=== PATIENT | female | born 1995 | race Caucasian/White ===

== ENCOUNTER → 2019-06-23 16:42 | Outpatient (CLI) | payer OTHER, SELFPAY ==
[2019-06-23 09:19] VITALS: BMI 26.2
[2019-06-27 12:03] LABS: HPV Reflexed? NOT INDICATED
== END ==
PROVIDERS: PCP Family Medicine; Referring Provider Nurse Practitioner Women's Health; Visit Provider Nurse Practitioner Women's Health
DX: Z12.4 Encounter for screening for malignant neoplasm of cervix (principal)
CPT/HCPCS: 88175; G0145

== ENCOUNTER → 2021-03-14 13:53 | Outpatient (CLI) | payer OTHER, SELFPAY ==
[2021-03-14 16:55] LABS: Amphetamine Urine VISTA NEGATIVE (<1000 ng/mL); Barbiturate Urine VISTA NEGATIVE (< 200 ng/mL); Benzodiazepine Urine VISTA NEGATIVE (< 200 ng/mL); Cocaine Urine VISTA NEGATIVE (< 300 ng/mL); Ecstacy Urine VISTA NEGATIVE (< 500 ng/mL); Methadone Urine VISTA NEGATIVE (< 300 ng/mL); PCP Urine VISTA NEGATIVE (< 25 ng/mL); THC Urine VISTA NEGATIVE (< 50 ng/mL); Vista UDS pH Range 5
[2021-03-17 00:07] LABS: Chlamydia By Nucleic Acid AMP Negative (Negative)
[2021-03-17 17:01] LABS: Gonococcus By Nucleic Acid AMP Negative (Negative)
== END ==
PROVIDERS: PCP Family Medicine; Visit Provider Obstetrics & Gynecology
DX: Z34.90 Encounter for supervision of normal pregnancy, unspecified, unspecified trimester (principal)
CPT/HCPCS: 80307; 87086; 87491; 87591

== ENCOUNTER → 2021-04-08 16:15 | Outpatient (CLI) | payer OTHER, SELFPAY ==
[2021-04-08 17:21] LABS: Absolute Lymphocyte Count 2.32 X10^3/uL (0.83-4.51); Absolute Neutrophil Count 7.9 X10^3/uL (2.0-7.7); Basophil# 0.04 X10^3/uL; Basophil% 0.4 % (0-1); Eosinophil# 0.13 X10^3/uL; Eosinophils% 1.2 % (0-5); Hematocrit 37.3 % (37-47); Hemoglobin 12.5 g/dL (12.0-15.0); Lymphocyte # 2.32 X10^3/ul (0.83-4.51); Lymphocyte % 20.7 % (19-41); Mean Corp Hgb Conc 33.5 g/dL (32-36); Mean Corpuscular Hgb 29.6 pg (27.0-32.0); Mean Corpuscular Volume 88.4 fL (81-99); Mean Platelet Vol. 10.2 fl (6.2-12.0); Monocyte# 0.68 X10^3/uL; Monocyte% 6.1 % (0-10); NRBC Flagged by Analyzer 0 % (0-5); Neutrophil % 70.4 % (47-70); Platelet Count 373 K/mm3 (150-450); RBC Distribution Width CV 12.5 % (11.6-14.6); RBC Distribution Width SD 40.2 fl (35.1-43.9); Red Blood Count 4.22 M/mm3 (4.2-5.4); White Blood Count 11.2 K/mm3 (4.4-11.0)
[2021-04-11 12:11] LABS: HIV - WCH Non-Reactive (Nonreactive); Hepatitis B Surface Antigen Non-Reactive (Nonreactive); Hepatitis C Antibody Non-Reactive (Nonreactive); Rubella IgG Reactive (Nonreactive); Syphilis Antibodies Non-reactive
== END ==
PROVIDERS: Referring Provider Obstetrics & Gynecology; Visit Provider Obstetrics & Gynecology
DX: Z34.90 Encounter for supervision of normal pregnancy, unspecified, unspecified trimester (principal)
CPT/HCPCS: 36415; 85025; 86703; 86762; 86780; 86803; 86850; 86900; 86901; 87340

== ENCOUNTER → 2021-06-30 15:26 | Outpatient (CLI) | payer OTHER, SELFPAY ==
[2021-07-02 09:49] LABS: Toxoplasma Gondii IgM < 3.0 AU/mL (0.0-7.9)
[2021-07-07 19:09] LABS: CMV Acute Antibody IgM < 30.0 AU/mL (0.0-29.9); CMV Antibody IgG < 0.60 U/mL (0.00-0.59); CMV by PCR Negative (Negative); PARVOVIRUS B19 IGG 0.2 index (0.0-0.8); Toxoplasma Gondii IgG < 3.0 IU/mL (0.0-7.1)
== END ==
DX: O30.032 Twin pregnancy, monochorionic/diamniotic, second trimester (principal); O28.3 Abnormal ultrasonic finding on antenatal screening of mother; Z3A.00 Weeks of gestation of pregnancy not specified
CPT/HCPCS: 36415; 86644; 86645; 86747; 86777; 86778; 87496

== ENCOUNTER 2021-07-15 15:17 | Outpatient (CLI) | payer OTHER, SELFPAY ==
[2021-07-15 15:49] LABS: Absolute Lymphocyte Count 2.08 X10^3/uL (0.83-4.51); Basophil# 0.06 X10^3/uL; Basophil% 0.5 % (0-1); Eosinophils% 0.9 % (0-5); Hematocrit 33.3 % (37-47); Hemoglobin 11.1 g/dL (12.0-15.0); Lymphocyte # 2.08 X10^3/ul (0.83-4.51); Lymphocyte % 18.2 % (19-41); Mean Corp Hgb Conc 33.3 g/dL (32-36); Mean Platelet Vol. 9.9 fl (6.2-12.0); Monocyte# 0.69 X10^3/uL; NRBC Flagged by Analyzer 0 % (0-5); Neutrophil # 8.04 X10^3/uL (2.7-7.7); Neutrophil % 70.1 % (47-70); Platelet Count 281 K/mm3 (150-450); RBC Distribution Width CV 13.1 % (11.6-14.6); RBC Distribution Width SD 42.7 fl (35.1-43.9); White Blood Count 11.5 K/mm3 (4.4-11.0)
[2021-07-15 17:03] LABS: Glucose Challenge Gest 1H 50g 131 mg/dL (70-140)
== END 2021-07-15 23:59 | disposition home or self-care (01) ==
LOC: LAB 15:19
PROVIDERS: Referring Provider Obstetrics & Gynecology; Visit Provider Obstetrics & Gynecology
DX: Z13.1 Encounter for screening for diabetes mellitus (principal)
CPT/HCPCS: 36415; 82950; 85025

== ENCOUNTER → 2021-09-01 | Outpatient (CLI) | payer OTHER, SELFPAY ==
[2021-09-01 17:08] LABS: ROM Internal Control Test YES-OK TO RESULT pt. (Internal QC); ROM Patient Test Negative (Negative)
== END | disposition home or self-care (01) ==
PROVIDERS: PCP Family Medicine; Referring Provider Obstetrics & Gynecology; Visit Provider Obstetrics & Gynecology
DX: N89.8 Other specified noninflammatory disorders of vagina (principal)
CPT/HCPCS: 84112

== ENCOUNTER 2021-09-05 13:45 | Inpatient (IN) | payer OTHER, SELFPAY ==
[2021-09-05] VITALS (98 sets, daily range): BP systolic 130–174; BP diastolic 76–111; PULSE 70–100; RESP 16–18; TEMP 36.2–37.3; O2SAT 87–100; BMI 36.6
[2021-09-05 14:11] LABS: Hematocrit 36.6 % (37-47); Hemoglobin 12.6 g/dL (12.0-15.0); Mean Corp Hgb Conc 34.4 g/dL (32-36); Mean Corpuscular Hgb 30.3 pg (27.0-32.0); Mean Platelet Vol. 12.2 fl (6.2-12.0); Platelet Count 178 K/mm3 (150-450); RBC Distribution Width CV 13.2 % (11.6-14.6); RBC Distribution Width SD 42.2 fl (35.1-43.9); Red Blood Count 4.16 M/mm3 (4.2-5.4); White Blood Count 15.4 K/mm3 (4.4-11.0)
[2021-09-05] MEDS: Betamethasone/Betamethasone 30 MG/5 ML Vial 12 MG IM (14:11)
[2021-09-05 14:24] LABS: AST(SGOT) 40 U/L (15-37); Alanine Aminotransfer ALT/SGPT 22 U/L (13-56); Creatinine, Serum 1.06 mg/dL (0.55-1.02); EST Glomerular Filtration Rate 66 mL/min (>60); Est Glom Filt Rate - Afr Amer 80 mL/min (>60); Estimated Creatinine Clearance 74.63 ml/min; Uric Acid 9.2 mg/dL (2.6-6.0)
[2021-09-05 14:27] LABS: Protein:Creat Ratio 6630 mg/g CRE (0-200)
[2021-09-05] MEDS: Labetalol (Prefilled) 20 MG/4 ML IV (14:33)
[2021-09-05] MEDS: Lactated Ringers 1,000 ML 20 ML IV (14:53)
[2021-09-05] MEDS: Magnesium Sulfate 4gm/100mL 4 GM/100 ML IV.SOLN. IV (14:53)
[2021-09-05] MEDS: Magnesium Sulfate 4gm/100mL 2 GM/50 ML IV.SOLN. IV (15:15)
[2021-09-05] MEDS: Magnesium Sulfate 20 GM/500 ML BAG IV (15:28)
[2021-09-05] MEDS: Labetalol 100 MG Tablet PO (15:55)
[2021-09-05] MEDS: Oxytocin 30 units/NS 500 ml 30 UNITS/500 ML IV.SOLN IV (16:33)
[2021-09-05 18:26] LABS: Group B Strep DNA By PCR Negative (Negative); Internal Control PASS; Probe Check PASS; Specimen Processing Control PASS
[2021-09-05] MEDS: Penicillin G 3,000,000 Units 50 ML 100 UNITS IV (20:33)
[2021-09-05 20:55] LABS: Absolute Lymphocyte Count 1.18 X10^3/uL (0.83-4.51); Absolute Neutrophil Count 15.2 X10^3/uL (2.0-7.7); Basophil# 0.07 X10^3/uL; Basophil% 0.4 % (0-1); Hematocrit 37.8 % (37-47); Hemoglobin 12.8 g/dL (12.0-15.0); Lymphocyte # 1.18 X10^3/ul (0.83-4.51); Lymphocyte % 6.8 % (19-41); Mean Corp Hgb Conc 33.9 g/dL (32-36); Mean Corpuscular Hgb 30.3 pg (27.0-32.0); Mean Corpuscular Volume 89.6 fL (81-99); Mean Platelet Vol. 12.3 fl (6.2-12.0); Monocyte# 0.23 X10^3/uL; Monocyte% 1.3 % (0-10); NRBC Flagged by Analyzer 0.5 % (0-5); Neutrophil # 15.21 X10^3/uL (2.7-7.7); Neutrophil % 88.3 % (47-70); Platelet Count 181 K/mm3 (150-450); RBC Distribution Width CV 13.3 % (11.6-14.6); RBC Distribution Width SD 43.5 fl (35.1-43.9); Red Blood Count 4.22 M/mm3 (4.2-5.4); White Blood Count 17.3 K/mm3 (4.4-11.0)
[2021-09-05 21:12] LABS: ALB/GLOB Ratio 0.6 RATIO (0.9-2.4); AST(SGOT) 35 U/L (15-37); Alanine Aminotransfer ALT/SGPT 23 U/L (13-56); Albumin, Serum 2.1 g/dL (3.2-5.0); Alkaline Phosphatase 112 U/L (45-117); Anion Gap 9 (5-15); BUN 15 mg/dL (7-18); BUN/Creat Ratio 12.4 RATIO (10-20); Calcium,Total 8.8 mg/dL (8.5-10.1); Chloride 106 mmol/L (98-107); Creatinine, Serum 1.21 mg/dL (0.55-1.02); EST Glomerular Filtration Rate 57 mL/min (>60); Est Glom Filt Rate - Afr Amer 69 mL/min (>60); Estimated Creatinine Clearance 65.38 ml/min; Globulin 3.8 g/dL (2.2-4.2); Glucose 114 mg/dL (74-106); Potassium 4.5 mmol/L (3.5-5.1); Protein, Total 5.9 g/dL (6.4-8.2); Sodium Level 137 mmol/L (136-145)
[2021-09-05] MEDS: Lactated Ringers 500 ML 999 ML IV (21:34)
[2021-09-05] MEDS: fentaNYL-bupivacaine (epidural) 100 ML BAG EPIDURAL (22:50)
[2021-09-05] MEDS: 0.9% Saline Lock 10 ML Syringe IV (23:06)
[2021-09-06] VITALS (94 sets, daily range): BP systolic 85–144; BP diastolic 42–98; PULSE 63–110; RESP 16–20; TEMP 35.8–36.8; O2SAT 88–100
[2021-09-06] MEDS: Penicillin G 3,000,000 Units 50 ML 100 UNITS IV (00:24)
[2021-09-06] MEDS: Magnesium Sulfate 20 GM/500 ML BAG IV ×3 (01:25→20:47)
--- NOTE | 2021-09-06 01:25 | NURSING ---
difficult to assess patellar reflexes d/t epidural being in place.
[2021-09-06] MEDS: fentaNYL-bupivacaine (epidural) 100 ML BAG EPIDURAL (02:57)
--- NOTE | 2021-09-06 03:24 | HP.PCM.OB_ITS ---
HPI - General General Date of Admission: 09/05/21 HPI Narrative KISHOR GAGNON, is a 26 F who presents with severe preeclampsia elevated bps in 160s over 90s, urine protein over 5000 and Cr of 1. she denies any BAXTER no BV, presented with small spotting, irregular ctx good fm. Maternal Data Information RENAE Calculator Estimated Delivery Date Method Current WG Current Estimate 10/17/21 LMP (Certain) 34w 1d Other Estimates 10/16/21 Ultrasound #1 34w 2d # 2 PFSH PFSH Home Medications multivitamin no.47-iron fum 27 mg-folate no.1 1 mg-dha 300 mg capsule 1 cap PO DAILY 03/10/21 [History Last Taken Unknown] breast pump #1 ea 06/03/21 [Rx Last Taken Unknown] Allergy/AdvReac Type Severity Reaction Status Date / Time No Known Allergies Allergy Verified 08/24/21 16:06 Family History Mother Melanoma Carcinoma Surgical History H/O hand surgery Social History Smoking Status: Never smoker alcohol intake: current details: social substance use type: does not use caffeine: Yes what type of physical activity do you participate in: walking seatbelt use: always do you feel safe at home: Yes 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 History 1 Elective abortions Hx Para 0 Spontaneous abortions Hx # Term Pregnancies Ectopic pregnancies Hx # Pregnancies Multiple births # of living children Visit Details Expected Delivery Route/Plan if vtx vtx Labor Preferences- CB/BF classes: yes labor support person: debra labor intervention preferences: [] pain management options preferred: epidural cut cord/dad catch: [] : [] PP control planned: [] discussed possible routes of delivery and associated risks: [] special requests: [] Plans Covid status: non immune, counseled regarding risk of covid in vs vaccination and declined vaccination Flu vaccine: declined Tdap vaccine: [] Rhogam: [] LARC form signed: [] Problem list reviewed and updated with the most current plan of care details and appropriate orders placed. Relevant counseling for the gestational age provided. Continue routine care and follow up unless otherwise noted in visit notes/problem list details OB Flowsheet Initial Weight: Not Recorded Date -?-?-?-?-?-?-?-?-?-?-?-?- EGA Weight BP Urine Prot -?-?-?-?-?-?-?-?-?-?-?-?- Glucose FHR FuHt Pres Dilation -?-?-?-?-?-?-?-?-?-?-?-?- Effaced St Visit Note 03/14/21 -?-?-?-?-?-?-?-?-?-?-?-?- 9w 0d 100/72 -?-?-?-?-?-?-?-?-?-?-?-?- A 168 -?-?-?-?-?-?-?-?-?-?-?-?- B 184 A -?-?-?-?-?-?-?-?-?-?-?-?- B -?-?-?-?-?-?-?-?-?-?-?-?- A -?-?-?-?-?-?-?-?-?-?-?-?- B A SM- Frontier/Di twin s seen poles measuring cons with LMP A- B- SM- Frontier/Di twins seen poles measuring cons with LMP A- 2.1cm B- 2.26cm -?-?-?-?-?-?-?-?-?-?-?-?- B 04/08/21 -?-?-?-?-?-?-?-?-?-?--?-?- 12w 4d 175 lb 8 oz 106/62 Nega tive -?-?-?-?-?-?-?-?-?-?-?-?- Negative A 170 -?-?-?-?-?-?-?-?-?-?-?-?- B 170 A -?-?-?-?-?-?-?-?-?-?-?-?- B -?-?-?-?-?-?-?-?-?-?-?-?- A -?-?-?-?-?-?-?-?-?-?-?-?- B A Sm- no vb lof cr maping -?-?-?-?-?-?-?-?-?-?-?-?- B 05/05/21 -?--?-?-?-?-?-?-?-?-?-?-?- 16w 3d 177 lb 4 oz 136/78 Nega tive -?-?-?-?-?-?-?-?-?-?-?-?- Negative A 145 -?-?-?-?-?-?-?-?-?-?-?-?- B 140 A -?-?-?-?-?-?--?-?-?-?-?-?- B -?-?-?-?-?-?-?-?-?-?-?-?- A -?-?-?-?-?-?-?-?-?-?-?-?- B A SM- no vb lof cr amping [facility] consult ordered -?-?-?-?-?-?-?-?-?-?-?-?- B 06/03/21 -?-?-?-?-?-?-?-?-?-?-?-?- 20w 4d 185 lb 6 oz 120/80 Nega tive -?-?-?-?-?-?-?-?-?-?-?-?- Negative A 150 -?-?-?-?-?-?-?-?-?-?-?-?- B 139 A Cephalic -?-?-?-?-?-?-?-?-?-?-?-?- B Breech -?-?-?-?-?-?-?-?-?-?-?-?- A -?-?-?-?-?-?-?-?-?-?-?-?- B A JV- no lof, vagi nal bleeding, or cramping. wants breast pump -?-?-?-?-?-?-?-?-?-?-?-?- B 06/13/21 -?-?-?-?-?-?-?-?-?-?-?-?- 22w 0d 191 lb 102/64 Negative -?-?-?-?-?-?-?-?-?-?-?-?- Negative A 147 -?-?-?-?-?-?-?-?-?-?-?-?- B 136 A -?-?-?-?-?-?-?-?-?-?-?-?- B -?-?-?-?-?-?-?-?-?-?-?-?- A -?-?-?-?-?-?-?-?-?-?-?-?- B A -Work in. Slip ped on ice 3 days ago, fell on left hip. Denies VB, LOF. No CTX. Good Fm. US confirms active IUP, FHT. Reassured. -?-?-?-?-?-?-?-?-?-?-?-?- B 06/30/21 -?-?-?-?-?-?-?-?-?-?-?-?- 24w 3d 191 lb 110/70 -?-?-?-?-?-?-?-?-?-?-?-?- A 145 -?-?-?-?-?-?-?-?-?-?-?-?- B 150 A -?-?-?-?-?-?-?-?-?-?-?-?- B -?-?-?-?-?-?-?-?-?-?-?-?- A -?-?-?-?-?-?-?-?-?-?-?-?- B A Sm- no vb lof go od fm no regualr ctx -?-?-?-?-?-?-?-?-?-?-?-?- B 07/15/21 -?-?-?-?-?-?-?-?-?-?-?-?- 26w 4d 196 lb 110/82 Negative -?-?-?-?-?-?-?-?-?-?-?-?- Negative A 135 -?-?-?-?-?-?-?-?-?-?-?-?- B 145 A -?-?-?-?-?-?--?-?-?-?-?-?- B -?-?-?-?-?-?-?-?-?-?-?-?- A -?-?-?-?-?-?-?-?-?-?-?-?- B A SM- no vb lof go od fm no regular ctx -?-?-?-?-?-?-?-?-?-?-?-?- B 07/26/21 -?-?-?-?-?-?-?-?-?-?-?-?- 28w 1d 198 lb 122/86 Negative -?-?-?-?-?-?-?-?-?-?-?-?- Negative A 150 -?-?-?-?-?-?-?-?-?-?-?-?- B 145 A Cephalic -?-?-?-?-?-?-?-?-?-?-?-?- B Transverse -?-?-?-?-?-?-?-?-?-?-?-?- A -?-?-?-?-?-?-?-?-?-?-?-?- B A SM- no vb lof go od fm no reuglar ctx reviewed labs -?-?-?-?-?-?-?-?-?-?-?-?- B 08/11/21 -?-?-?-?-?-?-?-?-?-?-?-?- 30w 3d 206 lb -?-?-?-?-?-?-?-?-?-?-?-?- A 145 -?-?-?-?-?-?-?-?-?-?-?-?- B 150 A Cephalic -?-?-?-?-?-?-?-?-?-?-?-?- B Cephalic -?-?-?-?-?-?-?-?-?-?-?-?- A -?-?-?-?-?-?-?-?-?-?-?-?- B A SM- no vb lof go od fm no regular ctx -?-?-?-?-?-?-?-?-?-?-?-?- B 08/17/21 -?-?-?-?-?-?-?-?-?-?-?-?- 31w 2d 206 lb 6 oz 120/80 -?-?-?-?-?-?-?-?-?-?-?-?- A 130 -?-?-?-?-?-?-?-?-?-?-?-?- B 50 A Transverse -?-?-?-?-?-?-?-?-?-?-?-?- B Transverse -?-?-?-?-?-?-?-?-?-?-?-?- A -?-?-?-?-?-?-?-?-?-?-?-?- B A JV- no complaint s today. plans to see MFM weekly and us weekly. She will have DANDRE checks with them and [facility]CV dopplers. if no signs of ttts plan is to deliver at 37 weeks. -?-?-?-?-?-?-?-?-?-?--?-?- B 08/24/21 -?-?-?-?-?-?-?-?-?-?-?-?- 32w 2d 210 lb 6 oz 130/80 Nega tive -?-?-?-?-?-?-?-?-?-?-?-?- Negative A -?-?-?-?-?-?-?-?-?-?-?-?- B A Cephalic -?-?-?-?-?-?-?-?-?-?-?-?- B Transverse -?-?-?-?-?-?-?-?-?-?-?-?- A -?-?-?-?-?-?-?-?-?-?-?-?- B A JV- no lof, vagi nal bleeding or dec fm. plan to ask mfm tomorrow about potential for NSTs and when. -?-?-?-?-?-?-?-?-?-?-?-?- B 09/01/21 -?-?-?-?-?-?-?-?-?-?-?-?- 33w 3d -?-?--?-?-?-?-?-?-?-?-?-?- A 155 -?-?-?-?-?-?-?-?-?-?-?-?- B 145 A Cephalic -?-?-?-?-?-?-?-?-?-?-?-?- B Cephalic -?-?-?-?-?-?-?-?-?-?-?-?- A -?-?-?-?-?-?-?-?-?-?-?-?- B A SM- no vb lof go od fm no regular ctx -?-?-?-?-?-?-?-?-?-?-?-?- B 09/05/21 -?-?-?-?-?-?-?-?-?-?-?-?- 34w 0d 227 lb 6 oz 158/102 153/100 169/108 160/100 154/92 150/98 168/92 166/87 156/100 146/98 146/98 141/94 141/94 157/108 174/101 157/108 148/94 155/109 155/109 162/92 157/92 146/82 146/82 146/82 147/90 147/90 147/90 148/89 148/89 148/89 143/93 143/93 144/93 144/93 166/100 166/100 166/97 174/111 167/104 168/101 159/95 158/97 145/86 140/87 143/87 143/93 141/84 130/80 130/80 134/85 132/77 138/76 133/83 133/83 131/83 122/74 122/74 125/75 125/75 119/74 119/74 133/84 133/84 -?-?-?-?-?-?-?-?-?-?-?-?- A -?-?-?-?-?-?-?-?-?-?-?-?- B A -?-?-?-?-?-?-?-?-?-?-?-?- B -?-?-?-?-?-?-?-?-?-?-?-?- A -?-?-?-?-?-?-?-?-?-?-?-?- B A -?-?-?-?-?-?-?-?-?-?-?-?- B NST FHR Rate Baby A Baseline: 140 Variability:: Moderate Accelerations:: 15 x 15 Decelerations:: None NST Reactive:: Yes FHR Category:: Category I Uterine Activity:: q3-5 FHR Rate Baby B Baseline: 140 Variability:: Moderate Accelerations:: 15 x 15 Decelerations:: None NST Reactive:: Yes FHR Category:: Category I ROS Constitutional Constitutional: Reports systems reviewed and no addt'l complaints, except as documented ENT HEENT: Reports systems reviewed and no addt'l complaints, except as documented Cardiovascular Cardiovascular: Reports systems reviewed and no addt'l complaints, except as documented Respiratory/Chest Respiratory/Chest: Reports systems reviewed and no addt'l complaints, except as documented Gastrointestinal Gastrointestinal: Reports systems reviewed and no addt'l complaints, except as documented and nausea; Denies abdominal pain Genitourinary Genitourinary: Reports systems reviewed and no addt'l complaints, except as documented, contractions Details: present and frequency (regular ) and movement Details: present Musculoskeletal Musculoskeletal: Reports systems reviewed and no addt'l complaints, except as documented Integumentary Integumentary: Reports as per HPI Neurologic Neurologic: Reports systems reviewed and no addt'l complaints, except as documented Endocrine Endocrinology: Reports systems reviewed and no addt'l complaints, except as documented Vital Signs Vital Signs Vital Signs: 09/05/21 13:26 09/05/21 13:27 09/05/21 13:28 Temperature 99.1 F Temperature Source Temporal Pulse Rate 89 93 94 Respiratory Rate Respiratory Effort Respiratory Depth Respiratory Pattern Blood Pressure 158/102 H 153/100 H Blood Pressure Mean BP Systolic 158 153 BP Diastolic 102 100 Blood Pressure Source Blood Pressure Position Blood Pressure Location Pulse Ox 96 96 Oxygen Delivery Method 09/05/21 13:40 09/05/21 13:51 09/05/21 14:00 Temperature Temperature Source Pulse Rate 100 90 88 Respiratory Rate Respiratory Effort Respiratory Depth Respiratory Pattern Blood Pressure 169/108 H 160/100 H 154/92 H Blood Pressure Mean BP Systolic 169 160 154 BP Diastolic 108 100 92 Blood Pressure Source Blood Pressure Position Blood Pressure Location Pulse Ox Oxygen Delivery Method 09/05/21 14:09 09/05/21 14:20 09/05/21 14:29 Temperature Temperature Source Pulse Rate 95 90 96 Respiratory Rate Respiratory Effort Respiratory Depth Respiratory Pattern Blood Pressure 150/98 H 168/92 H 166/87 H Blood Pressure Mean BP Systolic 150 168 166 BP Diastolic 98 92 87 Blood Pressure Source Blood Pressure Position Blood Pressure Location Pulse Ox Oxygen Delivery Method 09/05/21 14:46 09/05/21 14:48 09/05/21 14:49 Temperature Temperature Source Pulse Rate 91 84 90 Respiratory Rate Respiratory Effort Respiratory Depth Respiratory Pattern Blood Pressure 156/100 H Blood Pressure Mean BP Systolic 156 BP Diastolic 100 Blood Pressure Source Blood Pressure Position Blood Pressure Location Pulse Ox 96 94 Oxygen Delivery Method 09/05/21 14:51 09/05/21 14:53 09/05/21 14:56 Temperature Temperature Source Pulse Rate 98 94 93 Respiratory Rate 16 Respiratory Effort Normal Respiratory Depth Normal Respiratory Pattern Normal Blood Pressure 146/98 H Blood Pressure Mean 114 BP Systolic 146 BP Diastolic 98 Blood Pressure Source Monitor Blood Pressure Position Semi-Fowlers Blood Pressure Location Left Arm Pulse Ox 96 95 95 Oxygen Delivery Method Room Air 09/05/21 14:59 09/05/21 15:01 09/05/21 15:06 Temperature Temperature Source Pulse Rate 89 88 Respiratory Rate Respiratory Effort Respiratory Depth Respiratory Pattern Blood Pressure Blood Pressure Mean BP Systolic BP Diastolic Blood Pressure Source Blood Pressure Position Blood Pressure Location Pulse Ox 94 94 90 Oxygen Delivery Method 09/05/21 15:07 09/05/21 15:11 09/05/21 15:15 Temperature 98.5 F Temperature Source Temporal Pulse Rate 88 94 91 Respiratory Rate 16 Respiratory Effort Normal Respiratory Depth Normal Respiratory Pattern Normal Blood Pressure 141/94 H 141/94 H Blood Pressure Mean 109 BP Systolic 141 BP Diastolic 94 Blood Pressure Source Monitor Blood Pressure Position Semi-Fowlers Blood Pressure Location Left Arm Pulse Ox 94 95 Oxygen Delivery Method Room Air 09/05/21 15:16 09/05/21 15:21 09/05/21 15:26 Temperature Temperature Source Pulse Rate 97 89 92 Respiratory Rate Respiratory Effort Respiratory Depth Respiratory Pattern Blood Pressure Blood Pressure Mean BP Systolic BP Diastolic Blood Pressure Source Blood Pressure Position Blood Pressure Location Pulse Ox 95 92 94 Oxygen Delivery Method 09/05/21 15:27 09/05/21 15:31 09/05/21 15:34 Temperature Temperature Source Pulse Rate 91 92 88 Respiratory Rate 16 Respiratory Effort Normal Respiratory Depth Normal Respiratory Pattern Normal Blood Pressure 157/108 H 174/101 H Blood Pressure Mean 124 BP Systolic 174 BP Diastolic 101 Blood Pressure Source Monitor Blood Pressure Position Semi-Fowlers Blood Pressure Location Left Arm Pulse Ox 94 94 90 Oxygen Delivery Method Room Air 09/05/21 15:35 09/05/21 15:36 09/05/21 15:37 Temperature Temperature Source Pulse Rate 91 79 Respiratory Rate Respiratory Effort Respiratory Depth Respiratory Pattern Blood Pressure 157/108 H 148/94 H Blood Pressure Mean BP Systolic 157 148 BP Diastolic 108 94 Blood Pressure Source Blood Pressure Position Blood Pressure Location Pulse Ox 89 Oxygen Delivery Method 09/05/21 15:41 09/05/21 15:46 09/05/21 15:51 Temperature Temperature Source Pulse Rate 84 87 Respiratory Rate Respiratory Effort Respiratory Depth Respiratory Pattern Blood Pressure Blood Pressure Mean BP Systolic BP Diastolic Blood Pressure Source Blood Pressure Position Blood Pressure Location Pulse Ox 95 96 95 Oxygen Delivery Method 09/05/21 15:52 09/05/21 15:56 09/05/21 16:01 Temperature Temperature Source Pulse Rate 96 96 90 Respiratory Rate 18 Respiratory Effort Normal Respiratory Depth Normal Respiratory Pattern Normal Blood Pressure 155/109 H 155/109 H Blood Pressure Mean 124 BP Systolic 155 BP Diastolic 109 Blood Pressure Source Monitor Blood Pressure Position Semi-Fowlers Blood Pressure Location Left Arm Pulse Ox 96 96 Oxygen Delivery Method Room Air 09/05/21 16:06 09/05/21 16:07 09/05/21 16:11 Temperature Temperature Source Pulse Rate 94 93 Respiratory Rate Respiratory Effort Respiratory Depth Respiratory Pattern Blood Pressure 162/92 H Blood Pressure Mean BP Systolic 162 BP Diastolic 92 Blood Pressure Source Blood Pressure Position Blood Pressure Location Pulse Ox 96 95 Oxygen Delivery Method 09/05/21 16:16 09/05/21 16:21 09/05/21 16:22 Temperature Temperature Source Pulse Rate 86 89 86 Respiratory Rate Respiratory Effort Respiratory Depth Respiratory Pattern Blood Pressure 157/92 H Blood Pressure Mean BP Systolic 157 BP Diastolic 92 Blood Pressure Source Blood Pressure Position Blood Pressure Location Pulse Ox 96 95 Oxygen Delivery Method 09/05/21 16:26 09/05/21 16:31 09/05/21 16:36 Temperature Temperature Source Pulse Rate 92 87 91 Respiratory Rate Respiratory Effort Respiratory Depth Respiratory Pattern Blood Pressure Blood Pressure Mean BP Systolic BP Diastolic Blood Pressure Source Blood Pressure Position Blood Pressure Location Pulse Ox 95 96 96 Oxygen Delivery Method 09/05/21 16:37 09/05/21 16:38 09/05/21 16:41 Temperature 97.8 F Temperature Source Temporal Pulse Rate 88 87 Respiratory Rate 18 Respiratory Effort Normal Respiratory Depth Normal Respiratory Pattern Normal Blood Pressure 146/82 H 146/82 H Blood Pressure Mean 103 BP Systolic 146 146 BP Diastolic 82 82 Blood Pressure Source Monitor Blood Pressure Position Semi-Fowlers Blood Pressure Location Left Arm Pulse Ox 96 95 Oxygen Delivery Method Room Air 09/05/21 16:46 09/05/21 16:51 09/05/21 16:56 Temperature Temperature Source Pulse Rate 96 90 88 Respiratory Rate Respiratory Effort Respiratory Depth Respiratory Pattern Blood Pressure Blood Pressure Mean BP Systolic BP Diastolic Blood Pressure Source Blood Pressure Position Blood Pressure Location Pulse Ox 96 96 96 Oxygen Delivery Method 09/05/21 17:01 09/05/21 17:07 09/05/21 17:08 Temperature Temperature Source Pulse Rate 86 90 Respiratory Rate 16 Respiratory Effort Normal Respiratory Depth Normal Respiratory Pattern Normal Blood Pressure 147/90 H 147/90 H Blood Pressure Mean 109 BP Systolic 147 147 BP Diastolic 90 90 Blood Pressure Source Monitor Blood Pressure Position Semi-Fowlers Blood Pressure Location Left Arm Pulse Ox 96 96 Oxygen Delivery Method Room Air 09/05/21 18:00 09/05/21 18:03 09/05/21 19:27 Temperature 98.1 F 98.1 F Temperature Source Temporal Temporal Pulse Rate 93 92 Respiratory Rate Respiratory Effort Normal Respiratory Depth Normal Respiratory Pattern Normal Blood Pressure 148/89 H 148/89 H Blood Pressure Mean 108 BP Systolic 148 BP Diastolic 89 Blood Pressure Source Monitor Blood Pressure Position Semi-Fowlers Blood Pressure Location Left Arm Pulse Ox 94 92 Oxygen Delivery Method 09/05/21 19:28 09/05/21 20:29 09/05/21 21:35 Temperature 98.6 F 98.3 F Temperature Source Temporal Temporal Pulse Rate 89 86 88 Respiratory Rate 16 16 Respiratory Effort Normal Non-Labored Respiratory Depth Normal Respiratory Pattern Normal Blood Pressure 143/93 H 144/93 H Blood Pressure Mean 109 110 BP Systolic 143 144 BP Diastolic 93 93 Blood Pressure Source Monitor Monitor Blood Pressure Position Semi-Fowlers Semi-Fowlers Blood Pressure Location Left Arm Left Arm Pulse Ox 95 95 97 Oxygen Delivery Method Room Air Room Air 09/05/21 21:36 09/05/21 21:45 09/05/21 21:53 Temperature 98.3 F Temperature Source Temporal Pulse Rate 90 90 82 Respiratory Rate 18 Respiratory Effort Normal Non-Labored Respiratory Depth Normal Respiratory Pattern Normal Blood Pressure 166/100 H 166/100 H 166/97 H Blood Pressure Mean 122 BP Systolic 166 166 BP Diastolic 100 97 Blood Pressure Source Monitor Blood Pressure Position Semi-Fowlers Blood Pressure Location Right Arm Pulse Ox 97 Oxygen Delivery Method Room Air 09/05/21 22:04 09/05/21 22:10 09/05/21 22:14 Temperature Temperature Source Pulse Rate 92 96 88 Respiratory Rate Respiratory Effort Respiratory Depth Respiratory Pattern Blood Pressure 174/111 H 167/104 H Blood Pressure Mean BP Systolic 174 167 BP Diastolic 111 104 Blood Pressure Source Blood Pressure Position Blood Pressure Location Pulse Ox 96 97 Oxygen Delivery Method 09/05/21 22:15 09/05/21 22:16 09/05/21 22:19 Temperature Temperature Source Pulse Rate 88 90 85 Respiratory Rate Respiratory Effort Respiratory Depth Respiratory Pattern Blood Pressure 168/101 H 159/95 H Blood Pressure Mean BP Systolic 168 159 BP Diastolic 101 95 Blood Pressure Source Blood Pressure Position Blood Pressure Location Pulse Ox 99 Oxygen Delivery Method 09/05/21 22:20 09/05/21 22:24 09/05/21 22:25 Temperature Temperature Source Pulse Rate 88 85 86 Respiratory Rate Respiratory Effort Respiratory Depth Respiratory Pattern Blood Pressure 158/97 H Blood Pressure Mean BP Systolic 158 BP Diastolic 97 Blood Pressure Source Blood Pressure Position Blood Pressure Location Pulse Ox 99 100 Oxygen Delivery Method 09/05/21 22:29 09/05/21 22:31 09/05/21 22:36 Temperature Temperature Source Pulse Rate 81 86 85 Respiratory Rate Respiratory Effort Respiratory Depth Respiratory Pattern Blood Pressure 145/86 H Blood Pressure Mean BP Systolic 145 BP Diastolic 86 Blood Pressure Source Blood Pressure Position Blood Pressure Location Pulse Ox 98 97 Oxygen Delivery Method 09/05/21 22:39 09/05/21 22:41 09/05/21 22:46 Temperature Temperature Source Pulse Rate 87 89 78 Respiratory Rate Respiratory Effort Respiratory Depth Respiratory Pattern Blood Pressure 140/87 H Blood Pressure Mean BP Systolic 140 BP Diastolic 87 Blood Pressure Source Blood Pressure Position Blood Pressure Location Pulse Ox 98 99 Oxygen Delivery Method 09/05/21 22:49 09/05/21 22:51 09/05/21 22:55 Temperature 97.3 F L Temperature Source Temporal Pulse Rate 73 72 75 Respiratory Rate 16 Respiratory Effort Respiratory Depth Respiratory Pattern Blood Pressure 143/93 H 141/84 H Blood Pressure Mean 109 BP Systolic 143 141 BP Diastolic 87 84 Blood Pressure Source Monitor Blood Pressure Position Blood Pressure Location Right Arm Pulse Ox 97 97 Oxygen Delivery Method Room Air 09/05/21 22:56 09/05/21 23:00 09/05/21 23:01 Temperature Temperature Source Pulse Rate 72 71 73 Respiratory Rate Respiratory Effort Respiratory Depth Respiratory Pattern Blood Pressure 130/80 H Blood Pressure Mean BP Systolic 130 BP Diastolic 80 Blood Pressure Source Blood Pressure Position Blood Pressure Location Pulse Ox 96 96 Oxygen Delivery Method 09/05/21 23:04 09/05/21 23:06 09/05/21 23:10 Temperature Temperature Source Pulse Rate 76 76 73 Respiratory Rate Respiratory Effort Respiratory Depth Respiratory Pattern Blood Pressure 130/80 H 134/85 H Blood Pressure Mean BP Systolic 130 134 BP Diastolic 80 85 Blood Pressure Source Blood Pressure Position Blood Pressure Location Pulse Ox 98 Oxygen Delivery Method 09/05/21 23:11 09/05/21 23:14 09/05/21 23:16 Temperature Temperature Source Pulse Rate 71 81 70 Respiratory Rate Respiratory Effort Respiratory Depth Respiratory Pattern Blood Pressure 132/77 H Blood Pressure Mean BP Systolic 132 BP Diastolic 77 Blood Pressure Source Blood Pressure Position Blood Pressure Location Pulse Ox 95 95 Oxygen Delivery Method 09/05/21 23:21 09/05/21 23:24 09/05/21 23:26 Temperature 97.1 F L Temperature Source Temporal Pulse Rate 84 80 83 Respiratory Rate 16 Respiratory Effort Normal Non-Labored Respiratory Depth Normal Respiratory Pattern Normal Blood Pressure 138/76 H 133/83 H 131/83 H Blood Pressure Mean 99 BP Systolic 138 133 131 BP Diastolic 76 83 83 Blood Pressure Source Monitor Blood Pressure Position Semi-Fowlers Blood Pressure Location Left Arm Pulse Ox 95 96 96 Oxygen Delivery Method Room Air 09/05/21 23:31 09/05/21 23:36 09/05/21 23:41 Temperature Temperature Source Pulse Rate 88 89 90 Respiratory Rate Respiratory Effort Respiratory Depth Respiratory Pattern Blood Pressure Blood Pressure Mean BP Systolic BP Diastolic Blood Pressure Source Blood Pressure Position Blood Pressure Location Pulse Ox 96 96 95 Oxygen Delivery Method 09/05/21 23:46 09/05/21 23:51 09/06/21 00:21 Temperature 97.1 F L Temperature Source Temporal Pulse Rate 89 85 90 Respiratory Rate Respiratory Effort Respiratory Depth Respiratory Pattern Blood Pressure 122/74 H Blood Pressure Mean BP Systolic 122 BP Diastolic 74 Blood Pressure Source Blood Pressure Position Blood Pressure Location Pulse Ox 95 96 95 Oxygen Delivery Method 09/06/21 00:22 09/06/21 01:19 09/06/21 01:24 Temperature 97.1 F L 97.7 F L Temperature Source Temporal Temporal Pulse Rate 83 95 94 Respiratory Rate 16 16 Respiratory Effort Normal Non-Labored Respiratory Depth Normal Respiratory Pattern Normal Blood Pressure 122/74 H 125/75 H Blood Pressure Mean 90 91 BP Systolic 125 BP Diastolic 75 Blood Pressure Source Monitor Monitor Blood Pressure Position Semi-Fowlers Semi-Fowlers Blood Pressure Location Left Arm Right Arm Pulse Ox 95 94 95 Oxygen Delivery Method Room Air Room Air 09/06/21 01:29 09/06/21 02:19 09/06/21 03:00 Temperature 97.9 F 98.3 F Temperature Source Temporal Temporal Pulse Rate 92 87 94 Respiratory Rate 18 16 Respiratory Effort Normal Non-Labored Respiratory Depth Normal Respiratory Pattern Normal Blood Pressure 119/74 133/84 H Blood Pressure Mean 89 100 BP Systolic 119 133 BP Diastolic 74 84 Blood Pressure Source Monitor Monitor Blood Pressure Position Semi-Fowlers Semi-Fowlers Blood Pressure Location Left Arm Right Arm Pulse Ox 95 94 94 Oxygen Delivery Method Room Air Room Air 09/06/21 03:05 09/06/21 03:10 09/06/21 03:15 Temperature Temperature Source Pulse Rate 96 97 96 Respiratory Rate Respiratory Effort Respiratory Depth Respiratory Pattern Blood Pressure Blood Pressure Mean BP Systolic BP Diastolic Blood Pressure Source Blood Pressure Position Blood Pressure Location Pulse Ox 94 94 94 Oxygen Delivery Method 09/06/21 03:20 Temperature Temperature Source Pulse Rate 95 Respiratory Rate Respiratory Effort Respiratory Depth Respiratory Pattern Blood Pressure Blood Pressure Mean BP Systolic BP Diastolic Blood Pressure Source Blood Pressure Position Blood Pressure Location Pulse Ox 93 Oxygen Delivery Method Weight Weight: 227 lb 6 oz Body Mass Index (BMI) 36.6 Physical Exam Const alert, oriented x3 and healthy appearing Constitutional Narrative: uncomfortable with contractions HEENT normocephalic and moist oral mucous membranes Head and Scalp: atraumatic Neck full ROM, no lymphadenopathy, supple and thyroid normal General: trachea midline Thyroid: thyroid normal Lymph Lymphatic: no lymphadenopathy noted Chest inspection of chest normal Resp normal respiratory effort Cardio regular rate GI normal to inspection, nondistended, normoactive bowel sounds, soft to palpation and non-tender Inspection: gravid external exam normal Bimanual Exam - Vag & Uterus: uterus non-tender Manual OB Exam: estimated gestational size appropriate, presentation cephalic, dilated, effaced and station Extremity normal to inspection General Extremity: Negative for edema Skin no rashes or lesions noted Neuro deep tendon reflexes 2+ bilaterally Motor Exam: strength 5/5 throughout, clonus absent and clonus present initially by nurse, resolved for physician assessment Psych mental status grossly normal Labs Labs Labs: Blood Type O POSITIVE Antibody Screen NEGATIVE Hct 37.8 % (37-47) Hgb 12.8 g/dL (12.0-15.0) Syphilis Total Ab Non-reactive Rubella IgG Antibody Reactive (Nonreactive) Hep Bs Antigen Non-Reactive (Nonreactive) Chlamydia DNA (ANDREA) Negative (Negative) Neisseria gonorrhoeae DNA (ANDREA) Negative (Negative) HIV 1&2 Antibody Non-Reactive (Nonreactive) Glucose 1 Hr 50 gm 131 mg/dL (70-140) Group B Strep DNA Negative (Negative) Assessment & Plan (1) Preeclampsia, severe: COMMENT: plan IOL pitocin. magnesium sulfate 6 g then 2g. bloodwork repeat in 6 hours. celestone given for prematurity. pcn for gbs prophylaxis. labetalol IV x 1 and oral 100 BID started. (2) Supervision of high-risk : COMMENT: PRR RENAE: 10/17/21 girls Spouse: Debra (3) Echogenic bowel of fetus: COMMENT: echo genic stomach. torch titers ordered by [facility], fu scheduled. 06/30 titers negative, 07/27 US no change (4) Monochorionic diamniotic twin gestation: QUALIFIERS: Trimester: second trimester Qualified Code(s): O30.032 - Twin , monochorionic/diamniotic, second trimester COMMENT: seen at 9 weeks. monthly visit until 24 wks then every 2 wks until 30 then wkly until delivery, MFM visit q2 wks for TTTS, testing @32 wks 2x per wk once with MFM and once with OB. Delivery at 37 wks. TORCH titers sent on 06/30 and will see treatment center (5) : QUALIFIERS: Weeks of gestation: 33 weeks Qualified Code(s): Z3A.33 - 33 weeks gestation of COMMENT: declined genetic and carrier. Normal anatomy. (6) Encounter for induction of labor: COMMENT: iol pitocin, epidural PRN, AROM PRN. PLAN: see problem list comments
[2021-09-06] MEDS: Oxytocin 30 units/NS 500 ml 30 UNITS/500 ML IV.SOLN 334 UNITS IV (04:57)
[2021-09-06] MEDS: Carboprost Tromethamine 250 MCG/ML Ampul IM (05:03)
[2021-09-06] MEDS: miSOPROStol 200 MCG Tablet 1000 MCG RC (05:08)
[2021-09-06] MEDS: Ondansetron 4 MG/2 ML Vial IV (05:33)
--- NOTE | 2021-09-06 05:36 | EX.PCM.OBRPT ---
Assessment & Plan (1) Twin delivered vaginally: COMMENT: SM mono di girls x 2 severe preeclampsia PPH (2) atony of uterus with hemorrhage: COMMENT: hemabate, fundal massage, cytotec, TXA given. (3) Encounter for induction of labor: COMMENT: iol pitocin, epidural PRN, AROM PRN. (4) Preeclampsia, severe: COMMENT: plan magnesium sulfate x 24 hours PP. cbc cmp post delivery and at 24 hours PP (5) Supervision of high-risk : COMMENT: PRR RENAE: 10/17/21 girls Spouse: Debra (6) Echogenic bowel of fetus: COMMENT: echo genic stomach. torch titers ordered by MFM, fu scheduled. 06/30 titers negative, 07/27 US no change (7) Monochorionic diamniotic twin gestation: QUALIFIERS: Trimester: second trimester Qualified Code(s): O30.032 - Twin , monochorionic/diamniotic, second trimester COMMENT: seen at 9 weeks. monthly visit until 24 wks then every 2 wks until 30 then wkly until delivery, MFM visit q2 wks for TTTS, testing @32 wks 2x per wk once with MFM and once with OB. Delivery at 37 wks. TORCH titers sent on 06/30 and will see treatment center (8) : QUALIFIERS: Weeks of gestation: 33 weeks Qualified Code(s): Z3A.33 - 33 weeks gestation of COMMENT: declined genetic and carrier. Normal anatomy. Maternal Data Information RENAE Calculator Estimated Delivery Date Method Current WG Current Estimate 10/17/21 LMP (Certain) 34w 1d Other Estimates 10/16/21 Ultrasound #1 34w 2d # 2 Vaginal Delivery Operative Information Date of Procedure: 09/06/21 Pre-Operative Diagnosis: IOL twins mono di severe preeclampsia 34w1d Post-Operative Diagnosis: same plus hemorrhage atony Surgery / Procedure Performed: Spontaneous Vaginal Delivery (twins) and - (removal of right buttox lesion) Type of Anesthesia: Epidural Special Medications: cytotec hemabate txa Estimated Blood Loss: 1300 Fluids Replaced: crystalloid Findings Description of Procedure: Patient began pushing and delivered the head in the [EBONI] presentation. The head was delivered atraumatically . The anterior and posterior shoulders delivered without complication followed by the rest of the infant and the infant was placed on the maternal abdomen. Delayed cord clamping was employed for approximately 60 seconds. Cord was clamped and cut. After baby A was delivered to contractions later patient was complete again and clear rupture membranes resulted in patient being ready to push. Patient began pushing with the next contraction and delivered spontaneously baby B the head followed by the anterior and posterior shoulders in the JAMAAL presentation. Delayed cord clamping was employed and then the cord was clamped and cut and the passed off to marketing database coordinator. Placenta delivered immediately following was noted be intact. EBL was 1300 cc atony and hemorrhage was noted and treated with Hemabate, tranexamic acid, fundal massage, and Cytotec. The perineum and vagina were inspected and noted to have a second-degree perineal laceration that was repaired in the usual fashion. Patient had a right buttocks lesion that she requested to be removed. This area was prepped with Betadine and it was cut off at the base it was 1 cm in size and found to be a genital wart. bovey was used to obtain hemostasis. Patient and infant tolerated delivery well. Presentation: EBONI Amniotic Membrane Rupture Type: Artificial Amniotic Fluid Description: Clear Placental Delivery Description: Spontaneous Placenta Disposition: [facility] Cord Vessel Description: 3 Vessels Cord Entanglement: None Delayed Cord Clamping: Yes Post Vaginal Delivery Medications Given After Delivery: IV Pitocin, IM Hemabate and - (cytotec, TXA) Episiotomy Description: None Laceration: Perineal Extension/lac and 2nd degree Complication Complications: - (PPH ATONY) Multi Select Codes Integumentary Integumentary CPT Codes: 31738 Exc tr-ext b9+palma 0.5 cm< (1 cm) Urinary/Genital Urinary/Genital CPT Codes: 50676 Vaginal Delivery global pkg (twin vaginal delivery)
--- NOTE | 2021-09-06 06:16 | NURSING ---
mono-di twins (two amniotic sacs) -- baby A ruptured 2158 clear, scant fluid. baby B ruptured 0448 clear, small amount.
[2021-09-06 07:08] LABS: Absolute Lymphocyte Count 2.19 X10^3/uL (0.83-4.51); Basophil# 0.08 X10^3/uL; Basophil% 0.3 % (0-1); Eosinophil# 0.01 X10^3/uL; Hematocrit 30.7 % (37-47); Hemoglobin 10.1 g/dL (12.0-15.0); Lymphocyte # 2.19 X10^3/ul (0.83-4.51); Mean Corp Hgb Conc 32.9 g/dL (32-36); Mean Corpuscular Hgb 30.1 pg (27.0-32.0); Mean Corpuscular Volume 91.4 fL (81-99); Mean Platelet Vol. 12.5 fl (6.2-12.0); Monocyte# 2.25 X10^3/uL; Monocyte% 7.2 % (0-10); NRBC Flagged by Analyzer 0.3 % (0-5); Neutrophil # 26.04 X10^3/uL (2.7-7.7); Neutrophil % 83.5 % (47-70); POSITIVE COUNT YES; POSITIVE DIFFERENTIAL YES; Platelet Count 202 K/mm3 (150-450); RBC Distribution Width CV 13.5 % (11.6-14.6); RBC Distribution Width SD 45.1 fl (35.1-43.9); Red Blood Count 3.36 M/mm3 (4.2-5.4); White Blood Count 31.2 K/mm3 (4.4-11.0)
[2021-09-06 07:09] LABS: Differential Indicated SCAN CRITERIA MET
[2021-09-06 07:21] LABS: Anisocytosis 1+; Hypochromasia 1+
[2021-09-06 07:23] LABS: ALB/GLOB Ratio 0.5 RATIO (0.9-2.4); AST(SGOT) 32 U/L (15-37); Alanine Aminotransfer ALT/SGPT 16 U/L (13-56); Albumin, Serum 1.7 g/dL (3.2-5.0); Alkaline Phosphatase 87 U/L (45-117); Anion Gap 11 (5-15); BUN 17 mg/dL (7-18); BUN/Creat Ratio 14.2 RATIO (10-20); Calcium,Total 7.8 mg/dL (8.5-10.1); Chloride 107 mmol/L (98-107); EST Glomerular Filtration Rate 57 mL/min (>60); Est Glom Filt Rate - Afr Amer 69 mL/min (>60); Estimated Creatinine Clearance 65.92 ml/min; Globulin 3.2 g/dL (2.2-4.2); Glucose 122 mg/dL (74-106); Potassium 4.6 mmol/L (3.5-5.1); Protein, Total 4.9 g/dL (6.4-8.2); Sodium Level 136 mmol/L (136-145)
--- NOTE | 2021-09-06 07:43 | NURSING ---
pt hemorrhage checklist occurring at this time. this RN unable to complete full mag check with reflexes and clonus d/t pt acuity. multiple RNs at bedside to offer assistance.
[2021-09-06] MEDS: Naproxen 500 MG Tablet PO ×2 (08:12→16:55)
[2021-09-06] MEDS: Cefazolin 2 GM in 0.9% Normal Saline 100 ML IV (09:26)
[2021-09-06] MEDS: Silver Sulfadiazine 1% Crm 50 gm Bottle 1 APPLIC TOPICAL (11:22)
[2021-09-06] MEDS: Acetaminophen 500 MG Tablet 1000 MG PO ×2 (13:37→19:56)
[2021-09-06] MEDS: Labetalol 100 MG Tablet PO (13:38)
[2021-09-06] MEDS: Loperamide 2 MG Capsule 4 MG PO (13:42)
--- NOTE | 2021-09-06 22:12 | NURSING ---
late entry. pt to be charged for bovie use during vaginal delivery for a right buttox lesion revmoal. Gabby # [id number]. exp date 07/05/2023.
--- NOTE | 2021-09-06 22:24 | NURSING ---
magnesium rate verified at 2046 with Dion Johnson RN with [facility] administration
--- NOTE | 2021-09-06 22:54 | NURSING ---
Isaac Vora charge preparation technician RN received telephone order from Dr. Kinsey at 2032 to hold pt labetalol if BP less than 120/70.
[2021-09-07] VITALS (13 sets, daily range): BP systolic 115–137; BP diastolic 55–83; PULSE 68–92; RESP 16–20; TEMP 36.3–37.3; O2SAT 94–100
--- NOTE | 2021-09-07 03:58 | PN.OBGYN_ITS ---
Subjective Subjective Patient doing well without complaints. Tolerating PO. Ambulating and voiding without difficulty. Denies chest pain, shortness of breath, calf pain/swelling, fevers, chills, lightheadedness. Objective Data Objective Data Vital Signs: Vital Signs Temp Pulse Resp BP Pulse Ox 97.8 F 73 18 115/59 L 95 09/07/21 03:43 09/07/21 03:43 09/07/21 03:43 09/07/21 03:43 09/07/21 03:43 Oxygen Delivery Method Room Air Weight: 227 lb 6 oz Body Mass Index (BMI) 36.6 Intake & Output: Intake and Output for Last 24 Hours 09/05/21 09/06/21 09/07/21 23:59 23:59 23:59 Intake Total 1769.48 / 1769.48 4071.09 / 4071.09 100 / 100 Output Total 400 / 400 1770 / 1770 900 / 900 Balance 1369.48 / 1369.48 2301.09 / 2301.09 -800 / -800 Lab / Micro Data Result Diagrams: 09/06/21 07:04 09/06/21 07:04 Labs: Laboratory Results - last 24 hr 09/06/21 07:04: WBC 31.2 H*, RBC 3.36 L, Hgb 10.1 L, Hct 30.7 L, MCV 91.4, MCH 30.1, MCHC 32.9, RDW Std Deviation 45.1 H, RDW Coeff of Kwesi 13.5, Plt Count 202, MPV 12.5 H, Immature Gran % (Auto) 2.000 H, Neut % (Auto) 83.5 H, Lymph % (Auto) 7.0 L, [place] % (Auto) 7.2, Eos % (Auto) 0.0, Baso % (Auto) 0.3, Absolute Neuts (auto) 26.0 H, Absolute Lymphs (auto) 2.19, Nucleated RBC % 0.3, Diff Path Review May foll, Hypochromasia 1+, Anisocytosis 1+ 09/06/21 07:04: Sodium 136, Potassium 4.6, Chloride 107, Carbon Dioxide 18.0 L, Anion Gap 11, BUN 17, Creatinine 1.20 H, Estim Creat Clear Calc 65.92, Est GFR (MDRD) Af Amer 69, Est GFR (MDRD) Non-Af 57 L, BUN/Creatinine Ratio 14.2, Glucose 122 H, Calcium 7.8 L, Total Bilirubin 0.30, AST 32, ALT 16, Alkaline Phosphatase 87, Total Protein 4.9 L, Albumin 1.7 L, Globulin 3.2, Albumin/Globulin Ratio 0.5 L Micro: Microbiology 09/05/21 16:43 Nasal Secretion SARS-CoV-2 Antigen (Rapid) - Final ROS Constitutional Constitutional: Reports systems reviewed and no addt'l complaints, except as documented Cardiovascular Cardiovascular: Reports systems reviewed and no addt'l complaints, except as documented Respiratory/Chest Respiratory/Chest: Reports systems reviewed and no addt'l complaints, except as documented Gastrointestinal Gastrointestinal: Reports systems reviewed and no addt'l complaints, except as documented Physical Exam Const alert, oriented x3 and no apparent distress HEENT Head and Scalp: atraumatic Resp normal respiratory effort GI soft to palpation and non-tender Bimanual Exam - Vag & Uterus: uterus non-tender Uterus Palpation: uterus fundus firm (below Umbilicus) Assessment & Plan (1) Twin delivered vaginally: COMMENT: SM mono di girls x 2 severe preeclampsia PPH (2) atony of uterus with hemorrhage: COMMENT: hemabate, fundal massage, cytotec, TXA given. (3) Preeclampsia, severe: COMMENT: plan magnesium sulfate x 24 hours PP. cbc cmp post delivery and at 24 hours PP PLAN: s/p PPD # 1 1. routine post delivery care 2. breast feeding- support given 3. rh positive 4. rubella immune labetalol 100 BID hold if low bps, mag x 24 hours pp now turned off, continue to monitor, labs repeated
--- NOTE | 2021-09-07 03:59 | PCM.DC ---
Discharge Instructions Diet Discharge Diet: No restrictions Activity Discharge Activity: Return to Normal Activity, May Not Drive (while taking narcotic pain medications.) and May Shower May resume sexual activity in: 4-6 weeks Additional Activity Instructions:: hold labetalol if bp <120/70 either number Dressing / Incision Call your doctor if your incision/area has: Continuous Slow Oozing, Sudden Increased Bleeding, Increased Pain/ Swelling, Increased Redness and Foul Smelling Discharge Follow Up Care Please Follow Up With: Edith Kinsey MD When: Call [phone] to make an appointment with your doctor in 6 weeks. If you had elevated blood pressure or 4th degree laceration, you will need to be seen in 2 weeks. Test Results: Test results from this visit will be discussed in further detail at your follow-up appointment, if applicable. Discharge Plan Admission Admit Date/Time: 09/05/21 13:45 Attending Provider: Edith Kinsey Primary Care Provider: Starla Butler Discharge Orders/Prescriptions Prescriptions: New labetalol 100 mg tablet 100 mg PO BID Qty: 60 RF: 1 (DME) Blood Pressure Cuff Misc See Rx Instructions .ROUTE .MEDSUPPLY Qty: 1 RF: 0 Continued PNV-DHA 27 mg iron-1 mg -300 mg capsule 1 cap PO DAILY RF: 0 (DME) breast pump Device See Rx Instructions .ROUTE .MEDSUPPLY Qty: 1 RF: 0 Referrals / Follow Up: Starla Butler PA-C [Primary Care Provider] - Disposition Disposition (needs filled in before D/C Order can be placed): Home, Self Care
--- NOTE | 2021-09-07 04:00 | DS.PCM_ITS ---
Providers Date of Admission: 09/05/21 Primary Care Physician: Starla Bulter PA-C Reason For Visit: LABOR & DELIVERY Diagnosis Discharge Diagnosis (1) Twin delivered vaginally: Status: Inactive Code(s): O30.009 - Twin , unspecified number of placenta and unspecified number of amniotic sacs, unspecified trimester (2) atony of uterus with hemorrhage: Status: Inactive Code(s): O72.1 - Other immediate hemorrhage (3) Preeclampsia, severe: Status: Acute Code(s): O14.10 - Severe pre-eclampsia, unspecified trimester Medications at Discharge Home Medications multivitamin no.47-iron fum 27 mg-folate no.1 1 mg-dha 300 mg capsule 1 cap PO DAILY 03/10/21 breast pump #1 ea 06/03/21 labetalol 100 mg PO BID #60 tab 09/08/21 miscellaneous medical supply [Blood Pressure Cuff] #1 ea 09/08/21 Hospital Course Operations None Procedures None Summary of Care Provided Hospital Course: Patient presented for initial evaluation secondary to vaginal bleeding. Upon evaluation she was found to have severely elevated blood pressures and upon lab evaluation she had preeclampsia with severe features. She was 34 weeks with twins and therefore the decision to proceed with induction was made. Patient was given of the Celestone dose and magnesium sulfate was started and Pitocin induction began. Patient proceeded to deliver vaginally x2 and received magnesium sulfate x24 hours and was restarted on labetalol. She had a routine recovery and labs remained stable and she was stable for discharge to [facility] status on day #2. she was anemic and given iv venofer also Weight / BMI Weight Weight: 227 lb 6 oz Body Mass Index (BMI) 36.6 ABG / Lab / Microbiology Data Result Diagrams: 09/08/21 11:25 09/07/21 05:15 Laboratory: Laboratory Results - last 24 hr 09/06/21 07:04: WBC 31.2 H*, RBC 3.36 L, Hgb 10.1 L, Hct 30.7 L, MCV 91.4, MCH 30.1, MCHC 32.9, RDW Std Deviation 45.1 H, RDW Coeff of Kwesi 13.5, Plt Count 202, MPV 12.5 H, Immature Gran % (Auto) 2.000 H, Neut % (Auto) 83.5 H, Lymph % (Auto) 7.0 L, [place] % (Auto) 7.2, Eos % (Auto) 0.0, Baso % (Auto) 0.3, Absolute Neuts (auto) 26.0 H, Absolute Lymphs (auto) 2.19, Nucleated RBC % 0.3, Diff Path Review May foll, Hypochromasia 1+, Anisocytosis 1+ 09/06/21 07:04: Sodium 136, Potassium 4.6, Chloride 107, Carbon Dioxide 18.0 L, Anion Gap 11, BUN 17, Creatinine 1.20 H, Estim Creat Clear Calc 65.92, Est GFR (MDRD) Af Amer 69, Est GFR (MDRD) Non-Af 57 L, BUN/Creatinine Ratio 14.2, Glucose 122 H, Calcium 7.8 L, Total Bilirubin 0.30, AST 32, ALT 16, Alkaline Phosphatase 87, Total Protein 4.9 L, Albumin 1.7 L, Globulin 3.2, Albumin/Globulin Ratio 0.5 L Microbiology: Microbiology 09/05/21 16:43 Nasal Secretion SARS-CoV-2 Antigen (Rapid) - Final D/C Instructions Discharge Diet: No restrictions Discharge Activity: May Not Drive (for 2 weeks or while taking narcotic pain medications.), May Shower and May Take a Tub Bath (in 7 days) May shower in (days): 0 May resume sexual activity in: 4-6 weeks Weight Bearing Status: Full weight bearing Call your doctor if your incision/area has: Continuous Slow Oozing, Sudden Increased Bleeding, Increased Pain/ Swelling, Increased Redness and Foul Smelling Discharge Call your doctor if you observe: Fever of 101 or Higher and Using more than 1 pad per hour (for 2 hours) Please Follow Up With: Edith Kinsey MD When: Call [phone] to make an appointment with your doctor in 6 weeks. If you had elevated blood pressure or 4th degree laceration, you will need to be seen in 2 weeks. Meaningful Use Info Meaningful Use Diagnoses (Choose all that apply): None applicable Discharge Plan Admission Admit Date/Time: 09/05/21 13:45 Attending Provider: Edith Kinsey Primary Care Provider: Starla Butler Discharge Orders/Prescriptions Prescriptions: New labetalol 100 mg tablet 100 mg PO BID Qty: 60 RF: 1 (DME) Blood Pressure Cuff Misc See Rx Instructions .ROUTE .MEDSUPPLY Qty: 1 RF: 0 Continued PNV-DHA 27 mg iron-1 mg -300 mg capsule 1 cap PO DAILY RF: 0 (DME) breast pump Device See Rx Instructions .ROUTE .MEDSUPPLY Qty: 1 RF: 0 Referrals / Follow Up: Starla Butler PASarahC [Primary Care Provider] - Disposition Disposition (needs filled in before D/C Order can be placed): Home, Self Care
[2021-09-07] MEDS: 0.9% Saline Lock 10 ML Syringe IV (04:57)
[2021-09-07 05:25] LABS: Absolute Lymphocyte Count 3.31 X10^3/uL (0.83-4.51); Absolute Neutrophil Count 17.1 X10^3/uL (2.0-7.7); Basophil# 0.06 X10^3/uL; Basophil% 0.3 % (0-1); Eosinophil# 0.07 X10^3/uL; Eosinophils% 0.3 % (0-5); Hemoglobin 7.6 g/dL (12.0-15.0); Lymphocyte # 3.31 X10^3/ul (0.83-4.51); Lymphocyte % 14.5 % (19-41); Mean Corpuscular Hgb 30.8 pg (27.0-32.0); Mean Corpuscular Volume 93.1 fL (81-99); Mean Platelet Vol. 11.7 fl (6.2-12.0); Monocyte# 1.59 X10^3/uL; NRBC Flagged by Analyzer 0.6 % (0-5); Neutrophil # 17.14 X10^3/uL (2.7-7.7); Neutrophil % 75.1 % (47-70); POSITIVE DIFFERENTIAL YES; Platelet Count 185 K/mm3 (150-450); RBC Distribution Width CV 13.7 % (11.6-14.6); RBC Distribution Width SD 45.4 fl (35.1-43.9); Red Blood Count 2.47 M/mm3 (4.2-5.4); White Blood Count 22.8 K/mm3 (4.4-11.0)
[2021-09-07 05:40] LABS: ALB/GLOB Ratio 0.6 RATIO (0.9-2.4); AST(SGOT) 30 U/L (15-37); Alanine Aminotransfer ALT/SGPT 16 U/L (13-56); Albumin, Serum 1.8 g/dL (3.2-5.0); Alkaline Phosphatase 74 U/L (45-117); Anion Gap 7 (5-15); BUN 19 mg/dL (7-18); BUN/Creat Ratio 16.4 RATIO (10-20); Calcium,Total 6.9 mg/dL (8.5-10.1); Chloride 102 mmol/L (98-107); Creatinine, Serum 1.16 mg/dL (0.55-1.02); EST Glomerular Filtration Rate 59 mL/min (>60); Est Glom Filt Rate - Afr Amer 72 mL/min (>60); Globulin 3.1 g/dL (2.2-4.2); Glucose 96 mg/dL (74-106); Potassium 4.6 mmol/L (3.5-5.1); Protein, Total 4.9 g/dL (6.4-8.2); Sodium Level 134 mmol/L (136-145)
[2021-09-07 05:46] LABS: Differential Indicated SCAN CRITERIA MET
--- NOTE | 2021-09-07 07:36 | NURSING ---
report given to Michael Birmingham RN who is assuming care of pt at this time
--- NOTE | 2021-09-07 08:16 | PCM.PN.OB ---
Subjective Subjective Patient doing well without complaints. Tolerating PO. Ambulating and voiding without difficulty. Feeding well. Denies chest pain, shortness of breath, calf pain. She still has some swelling, but states that it is getting better. No fevers, chills, lightheadedness. She is nervous about over sleeping and wants to pump for the babies. Objective Data Objective Data Vital Signs: Vital Signs Temp Pulse Resp BP Pulse Ox 98.7 F 70 18 120/72 99 09/08/21 06:15 09/08/21 06:15 09/08/21 06:15 09/08/21 06:15 09/07/21 16:04 Oxygen Delivery Method Room Air Weight: 227 lb 6 oz Body Mass Index (BMI) 36.6 Intake & Output: Intake and Output for Last 24 Hours 09/06/21 09/07/21 09/08/21 23:59 23:59 23:59 Intake Total 4071.09 / 4071.09 607.5 / 607.5 Output Total 1770 / 1770 900 / 900 Balance 2301.09 / 2301.09 -292.5 / -292.5 Lab / Micro Data Result Diagrams: 09/08/21 05:22 09/07/21 05:15 Labs: Laboratory Results - last 24 hr 09/06/21 07:04: Diff Path Review Reviewed 09/08/21 05:22: WBC 16.5 H, RBC 2.20 L, Hgb 6.8 L, Hct 20.7 L, MCV 94.1, MCH 30.9, MCHC 32.9, RDW Std Deviation 47.1 H, RDW Coeff of Kwesi 14.3, Plt Count 222, MPV 10.9, Neut % (Auto) Not Reportable, Absolute Neuts (auto) 10.7 H, Absolute Lymphs (auto) 4.28, Total Counted 100, Neutrophils % (Manual) 56, Band Neutrophils % 9 H, Lymphocytes % (Manual) 26, Monocytes % (Manual) 5, Metamyelocytes % 1, Myelocytes % 3 H, Diff Path Review May , Platelet Estimate ADEQUATE, RBC Morphology NORM C+C Micro: Microbiology 09/05/21 16:43 Nasal Secretion SARS-CoV-2 Antigen (Rapid) - Final ROS Constitutional Constitutional: Denies chills, fatigue, fever(s), poor appetite or weakness Eyes Eyes: Denies blurry vision, change in vision, seeing flashes or spots in vision ENT HEENT: Denies dizziness, headache(s), loss taste/smell or sore throat Cardiovascular Cardiovascular: Denies chest pain, dizziness, dyspnea, irregular heart rhythm, palpitations or rapid heart rate Respiratory/Chest Respiratory/Chest: Denies chest tightness, cough, dyspnea or breast pain Gastrointestinal Gastrointestinal: Denies abdominal pain, constipation or vomiting Genitourinary Genitourinary: Denies dysuria or flank pain Musculoskeletal Musculoskeletal: Denies difficulty walking, joint pain, limited range of motion or numbness Neurologic Neurologic: Denies abnormal movements, abnormal speech, dizziness, numbness, seizure-like activity or syncope Psychiatric Psychiatric: Denies anxiety, behavioral changes, change in appetite, confusion, depression or suicidal thoughts Physical Exam Const alert, oriented x3 and no apparent distress General Appearance: cooperative and comfortable Resp normal respiratory effort Cardio regular rate GI normal to inspection, nondistended, normoactive bowel sounds GI Narrative: uterus is firm below umbilicus Palpation: soft Back/Spine no CVA tenderness and thoraco-lumbar ROM normal Extremity normal to inspection, no clubbing, cyanosis or edema, no calf tenderness and no pedal edema Psych mental status grossly normal, thought process normal, cooperative, affect normal, speech normal, activity/motor behavior normal, denies homicidal ideation and denies suicidal ideation Assessment & Plan (1) Preeclampsia, severe: COMMENT: plan magnesium sulfate x 24 hours PP. cbc cmp post delivery and at 24 hours PP PLAN: s/p PPD # 1 1. routine post delivery care, magnesium off since 5 am. BP is low. Holding labetalol. 2. breast feeding- support given 3. rh positive 4. rubella immune
[2021-09-07 13:19] LABS: Pathologist Review Reviewed
[2021-09-08] VITALS (8 sets, daily range): BP systolic 120–141; BP diastolic 72–92; PULSE 54–102; RESP 16–18; TEMP 36.9–37.2
[2021-09-08] MEDS: Naproxen 500 MG Tablet PO (02:33)
[2021-09-08] MEDS: 0.9% Saline Lock 10 ML Syringe IV ×2 (02:33→13:24)
[2021-09-08 06:37] LABS: Hematocrit 20.7 % (37-47); Hemoglobin 6.8 g/dL (12.0-15.0); Mean Corp Hgb Conc 32.9 g/dL (32-36); Mean Corpuscular Hgb 30.9 pg (27.0-32.0); Mean Corpuscular Volume 94.1 fL (81-99); Mean Platelet Vol. 10.9 fl (6.2-12.0); POSITIVE COUNT YES; POSITIVE MORPHOLOGY YES; Platelet Count 222 K/mm3 (150-450); RBC Distribution Width CV 14.3 % (11.6-14.6); RBC Distribution Width SD 47.1 fl (35.1-43.9); White Blood Count 16.5 K/mm3 (4.4-11.0)
[2021-09-08 06:38] LABS: Differential Indicated MANUAL DIFF
[2021-09-08 06:49] LABS: Platelet Estimate ADEQUATE (ADEQ); Red Cell Morphology NORM C+C NORMAL (NORM C&C)
[2021-09-08 06:53] LABS: Absolute Lymphocyte Count 4.28 X10^3/uL (0.83-4.51); Absolute Neutrophil Count 10.7 X10^3/uL (2.0-7.7); Lymphocyte 26 % (19-41); Metamyelocyte 1 % (0-1); Monocyte 5 % (0-10); Myelocyte 3 % (0-0); Neutrophil-Band 9 % (0-5); Neutrophil-Segmented 56 % (47-70); Total Cells Counted 100 (MANUAL DIFF)
[2021-09-08] MEDS: Labetalol 100 MG Tablet PO (10:08)
[2021-09-08 10:31] LABS: Pathologist Review Reviewed
[2021-09-08 11:36] LABS: Absolute Lymphocyte Count 3.07 X10^3/uL (0.83-4.51); Absolute Neutrophil Count 10.9 X10^3/uL (2.0-7.7); Basophil# 0.06 X10^3/uL; Basophil% 0.4 % (0-1); Eosinophil# 0.25 X10^3/uL; Eosinophils% 1.5 % (0-5); Hematocrit 21.9 % (37-47); Hemoglobin 7.1 g/dL (12.0-15.0); Lymphocyte # 3.07 X10^3/ul (0.83-4.51); Lymphocyte % 18.7 % (19-41); Mean Corp Hgb Conc 32.4 g/dL (32-36); Mean Corpuscular Hgb 30.5 pg (27.0-32.0); Mean Platelet Vol. 10.5 fl (6.2-12.0); Monocyte# 1.38 X10^3/uL; Monocyte% 8.4 % (0-10); NRBC Flagged by Analyzer 1.3 % (0-5); Neutrophil # 10.91 X10^3/uL (2.7-7.7); Neutrophil % 66.3 % (47-70); Platelet Count 236 K/mm3 (150-450); RBC Distribution Width CV 14.4 % (11.6-14.6); Red Blood Count 2.33 M/mm3 (4.2-5.4); White Blood Count 16.4 K/mm3 (4.4-11.0)
--- NOTE | 2021-09-08 12:41 | PN.OBGYN_ITS ---
Subjective Subjective Patient doing well without complaints. Tolerating PO. Ambulating and voiding without difficulty. Denies chest pain, shortness of breath, calf pain/swelling, fevers, chills, lightheadedness. orthostatics negative Objective Data Objective Data Vital Signs: Vital Signs Temp Pulse Resp BP Pulse Ox 98.8 F 102 H 16 131/83 H 99 09/08/21 08:26 09/08/21 10:00 09/08/21 08:37 09/08/21 10:00 09/07/21 16:04 Oxygen Delivery Method Room Air Weight: 227 lb 6 oz Body Mass Index (BMI) 36.6 Intake & Output: Intake and Output for Last 24 Hours 09/06/21 09/07/21 09/08/21 23:59 23:59 23:59 Intake Total 4071.09 / 4071.09 607.5 / 607.5 Output Total 1770 / 1770 900 / 900 Balance 2301.09 / 2301.09 -292.5 / -292.5 Lab / Micro Data Result Diagrams: 09/08/21 11:25 09/07/21 05:15 Labs: Laboratory Results - last 24 hr 09/06/21 07:04: Diff Path Review Reviewed 09/07/21 05:15: Diff Path Review Reviewed 09/08/21 05:22: WBC 16.5 H, RBC 2.20 L, Hgb 6.8 L, Hct 20.7 L, MCV 94.1, MCH 30.9, MCHC 32.9, RDW Std Deviation 47.1 H, RDW Coeff of Kwesi 14.3, Plt Count 222, MPV 10.9, Neut % (Auto) Not Reportable, Absolute Neuts (auto) 10.7 H, Absolute Lymphs (auto) 4.28, Total Counted 100, Neutrophils % (Manual) 56, Band Neutrophils % 9 H, Lymphocytes % (Manual) 26, Monocytes % (Manual) 5, Metamyelocytes % 1, Myelocytes % 3 H, Diff Path Review May , Platelet Estimate ADEQUATE, RBC Morphology NORM C+C 09/08/21 11:25: WBC 16.4 H, RBC 2.33 L, Hgb 7.1 L, Hct 21.9 L, MCV 94.0, MCH 30.5, MCHC 32.4, RDW Std Deviation 48.0 H, RDW Coeff of Kwesi 14.4, Plt Count 236, MPV 10.5, Immature Gran % (Auto) 4.700 H, Neut % (Auto) 66.3, Lymph % (Auto) 1 8.7 L, [place] % (Auto) 8.4, Eos % (Auto) 1.5, Baso % (Auto) 0.4, Absolute Neuts (auto) 10.9 H, Absolute Lymphs (auto) 3.07, Nucleated RBC % 1.3 Micro: Microbiology 09/05/21 16:43 Nasal Secretion SARS-CoV-2 Antigen (Rapid) - Final ROS Constitutional Constitutional: Reports systems reviewed and no addt'l complaints, except as documented Cardiovascular Cardiovascular: Reports systems reviewed and no addt'l complaints, except as documented Respiratory/Chest Respiratory/Chest: Reports systems reviewed and no addt'l complaints, except as documented Gastrointestinal Gastrointestinal: Reports systems reviewed and no addt'l complaints, except as documented Physical Exam Const alert, oriented x3 and no apparent distress HEENT Head and Scalp: atraumatic Resp normal respiratory effort GI soft to palpation and non-tender Bimanual Exam - Vag & Uterus: uterus non-tender Uterus Palpation: uterus fundus firm (below Umbilicus) Assessment & Plan (1) Preeclampsia, severe: COMMENT: plan magnesium sulfate x 24 hours PP. cbc cmp post delivery and at 24 hours PP PLAN: s/p PPD # 2 1. routine post delivery care 2. breast feeding- support given 3. rh positive 4. rubella immune preeclampsia=- labetalol anemia sec PPH acute blood loss, IV venofer, patient asymptomatic, orthostatics negative
[2021-09-08 12:45] LABS: Pathologist Review Reviewed
--- NOTE | 2021-09-08 17:07 | NURSING ---
discharge instr reviewed with the pt. pt will go to hotel status.
== END 2021-09-08 16:30 | disposition home or self-care (01) | DRG 805 ==
LOC: WPOUT 15:16 → WP 09-06 05:49
PROVIDERS: Obstetrics & Gynecology; Admitting Provider Obstetrics & Gynecology; PCP Family Medicine; Visit Provider Obstetrics & Gynecology
DX: O30.033 Twin pregnancy, monochorionic/diamniotic, third trimester (principal); Z37.2 Twins, both liveborn; O60.14X1 Preterm labor third trimester with preterm delivery third trimester, fetus 1; O60.14X2 Preterm labor third trimester with preterm delivery third trimester, fetus 2; D62 Acute posthemorrhagic anemia; O72.1 Other immediate postpartum hemorrhage; O14.14 Severe pre-eclampsia complicating childbirth; O35.8XX0 Maternal care for other (suspected) fetal abnormality and damage, not applicable or unspecified; O90.81 Anemia of the puerperium; O70.1 Second degree perineal laceration during delivery; Z3A.34 34 weeks gestation of pregnancy; Z79.899 Other long term (current) drug therapy; Z28.310 Unvaccinated for COVID-19; Z28.9 Immunization not carried out for unspecified reason
CPT/HCPCS: 59025; 59050; 76815; 80053; 82565; 82570; 84156; 84450; 84460; 84550; 85025; 85027; 86850; 86900; 86901; 87077; 87081; 87186; 87426; 87653; 99218; J1756; J7120; A4216; G0378; J0702; J2405

== ENCOUNTER → 2022-07-27 | Outpatient (CLI) | payer OTHER, SELFPAY ==
[2022-08-08 12:19] LABS: HPV Reflexed? NOT INDICATED
== END | disposition home or self-care (01) ==
LOC: LABSPEC 16:35
PROVIDERS: PCP Family Medicine; Referring Provider Obstetrics & Gynecology; Visit Provider Obstetrics & Gynecology
DX: C53.9 Malignant neoplasm of cervix uteri, unspecified (principal)
CPT/HCPCS: 88175; G0145

== ENCOUNTER → 2022-08-16 | Outpatient (CLI) | payer OTHER, SELFPAY ==
--- NOTE | 2022-08-16 12:06 | NM_ITS ---
CLINICAL: 27-year-old female with history of post gestational abdominal pain. SEMI-SOLID PHASE 99m Tc SULFUR COLLOID GASTRIC EMPTYING STUDY COMPARISON: None available FINDINGS: The patient was administered 1.1 mCi of 99m Tc sulfur colloid mixed with oatmeal and consumed per os. Image acquisitions in the anterior-posterior projections were obtained for 60 minutes. There is prompt visualization of the stomach. There is no gastroesophageal reflux identified. The T ? raw data emptying was calculated to be 49.14 minutes, (Normal: 12-56 minutes). NM/Gastric Emptying Study IMPRESSION: 1. NORMAL 99m Tc sulfur colloid semi-solid phase (oatmeal) gastric emptying imaging examination. A. There is normal and preserved semi-solid phase gastric emptying compared to normal controls. (Migue et al, J Nucl Med Tech 38: 186, 2010). Electronically Signed: Jake Palacios, at 23:59 EDT ,
== END | disposition home or self-care (01) ==
LOC: NM 12:04
PROVIDERS: PCP Family Medicine; Referring Provider Internal Medicine Gastroenterology; Visit Provider Internal Medicine Gastroenterology
DX: R10.9 Unspecified abdominal pain (principal)
CPT/HCPCS: 78264; A9541

== ENCOUNTER → 2024-08-08 | Outpatient (CLI) | payer OTHER, SELFPAY ==
--- NOTE | 2024-08-08 08:58 | US_ITS ---
EXAM: DIAG MAMM W/CAD, BILAT; BREAST LIMITED UNILATERAL; BILAT BRST POLO STAND ALONE 08/08/2024 CLINICAL HISTORY: F, Age 29 y/o , LEFT BREAST LUMP; LT LUMP TECHNIQUE: Bilateral Diagnostic digital breast tomosynthesis with 2D and 3D images. Computer aided detection. Also, targeted left breast ultrasound was performed. COMPARISON: Baseline examination, no priors. FINDINGS: TISSUE DENSITY: The breast tissue is extremely dense which lowers the sensitivity of mammography. The mammogram demonstrates that the patient has dense breasts. Supplemental screening with whole breast ultrasound or MRI may be considered for further evaluation. Bilateral Breast Mammographic Findings: Left breast: There is a triangle skin marker indicating an area of palpable concern in the upper-outer left breast. Underlying the skin marker are no suspicious mammographic findings in the upper-outer left breast. Otherwise, there are no suspicious findings in the left breast. Right breast: No significant masses, calcifications or other abnormalities are identified. Ultrasound: Left breast: Ultrasound of the area of patient's palpable concern in the left breast at 1 o'clock 4 cm from the nipple demonstrates no suspicious sonographic findings. US/Breast Limited Unilateral IMPRESSION: 1. There are no suspicious mammographic or sonographic findings in the area of patient's palpable concern in the left breast. 2. There is no mammographic evidence of malignancy in either breast. Right Breast: BIRADS 1 NEGATIVE. Left Breast: BIRADS 1 NEGATIVE. OVERALL FINAL ASSESSMENT: BIRADS 1 NEGATIVE. RECOMMENDATION: Routine annual follow-up in 1 Year A letter with findings and recommendations will be mailed to the patient. Reading Location: [id number]
--- NOTE | 2024-08-08 09:01 | BI_ITS ---
EXAM: DIAG MAMM W/CAD, BILAT; BREAST LIMITED UNILATERAL; BILAT BRST POLO STAND ALONE 08/08/2024 CLINICAL HISTORY: F, Age 29 y/o , LEFT BREAST LUMP; LT LUMP TECHNIQUE: Bilateral Diagnostic digital breast tomosynthesis with 2D and 3D images. Computer aided detection. Also, targeted left breast ultrasound was performed. COMPARISON: Baseline examination, no priors. FINDINGS: TISSUE DENSITY: The breast tissue is extremely dense which lowers the sensitivity of mammography. The mammogram demonstrates that the patient has dense breasts. Supplemental screening with whole breast ultrasound or MRI may be considered for further evaluation. Bilateral Breast Mammographic Findings: Left breast: There is a triangle skin marker indicating an area of palpable concern in the upper-outer left breast. Underlying the skin marker are no suspicious mammographic findings in the upper-outer left breast. Otherwise, there are no suspicious findings in the left breast. Right breast: No significant masses, calcifications or other abnormalities are identified. Ultrasound: Left breast: Ultrasound of the area of patient's palpable concern in the left breast at 1 o'clock 4 cm from the nipple demonstrates no suspicious sonographic findings. BI/Bilat Brst Polo Stand Alone IMPRESSION: 1. There are no suspicious mammographic or sonographic findings in the area of patient's palpable concern in the left breast. 2. There is no mammographic evidence of malignancy in either breast. Right Breast: BIRADS 1 NEGATIVE. Left Breast: BIRADS 1 NEGATIVE. OVERALL FINAL ASSESSMENT: BIRADS 1 NEGATIVE. RECOMMENDATION: Routine annual follow-up in 1 Year A letter with findings and recommendations will be mailed to the patient. Reading Location: [id number]
== END | disposition home or self-care (01) ==
PROVIDERS: PCP Family Medicine; Referring Provider Obstetrics & Gynecology; Visit Provider Obstetrics & Gynecology
DX: N63.21 Unspecified lump in the left breast, upper outer quadrant (principal)
CPT/HCPCS: 76642; 77062; 77066; G0279